=== PATIENT | male | born 1960 | race Caucasian/White ===

== ENCOUNTER 2018-09-27 16:00 | Emergency (ER) | payer OTHER ==
[~2018-09-27] VITALS: Ht 172.7 cm; Wt 72.6 kg
[~2018-09-27 16:00] MED LIST: Bactrim Ds Tab1 EACH PO; CELE200 PO; CLIN300 PO; Cyclobenzaprine5 MG PO; DOCU SOFT PO; HYDACE10B PO; IBUP800 PO; MULTIVITAMIN PO; Norco 5-325 Ta1 EACH PO; SULTRIDS PO; VIT E PO
[2018-09-27] MEDS ORDERED: PERIDEX15 ML MM (16:31)
[2018-09-27] MEDS ORDERED: Amoxicillin500 M1 PO (16:31)
== END 2018-09-27 16:49 | disposition home or self-care (01) ==
LOC: ER 16:00
DX: K08.89 Other specified disorders of teeth and supporting structures (principal); F17.200 Nicotine dependence, unspecified, uncomplicated
CPT/HCPCS: 99282

== ENCOUNTER 2019-12-10 19:52 | Inpatient (IN) | payer OTHER ==
[~2019-12-10] VITALS: Ht 172.7 cm; Wt 68.6 kg
[~2019-12-10 19:52] MED LIST changes: +Amoxicillin500 M1 PO; +PERIDEX15 ML MM
[2019-12-10] MEDS ORDERED: Ciloxan5 ML OP (19:58)
[2019-12-10 20:37] LABS: BASOPHILS ABSOLUTE AUTO 0.04 K/mm3 (0.00-0.23); BASOPHILS PERCENT AUTO 1 % (0-2); EOSINOPHILS PERCENT AUTO 1 % (0-6); Hemoglobin 14.2 g/dL (13.5-17.5); IMMATURE GRAN ABSOLUTE AUTO 0.02 K/mm3 (0.00-0.10); IMMATURE GRAN PERCENT AUTO 0 % (0-1); LYMPHOCYTES ABSOLUTE AUTO 2.05 K/mm3 (0.84-5.20); LYMPHOCYTES PERCENT AUTO 28 % (21-46); MONOCYTES ABSOLUTE AUTO 0.51 K/mm3 (0.16-1.47); MONOCYTES PERCENT AUTO 7 % (4-13); Mean Corpuscular HGB 31.3 pg (26.0-34.0); Mean Corpuscular Volume 95 fL (80-100); NEUTROPHILS ABSOLUTE AUTO 4.57 K/mm3 (1.96-9.15); NEUTROPHILS PERCENT AUTO 63 % (41-73); Platelet Count 343 K/mm3 (150-400); RDW Coefficient Variation 12.8 % (11.7-14.2); RDW Standard Deviation 44.7 fL (35.1-46.3); Red Blood Cell Count 4.54 M/mm3 (4.30-5.90); White Blood Cell Count 7.29 K/mm3 (4.00-11.30)
[2019-12-10 21:05] LABS: Alanine Aminotransfer (ALT/SGP 31 U/L (12-78); Albumin, Blood 3.7 g/dL (3.4-5.0); Alk Phos 115 U/L (50-136); Anion Gap 4 mmol/L (6-16); Aspartate Aminotrans (AST/SGOT 22 U/L (12-37); Bilirubin, Total 0.2 mg/dL (0.1-1.0); Blood Urea Nitrogen 19 mg/dL (8-24); Bun/Creatinine Ratio 18.3 (12.0-20.0); CO2, Blood 30 mmol/L (21-32); Calcium, Blood 8.8 mg/dL (8.5-10.1); Chloride, Blood 108 mmol/L (98-108); Creatinine, Blood 1.04 mg/dL (0.60-1.20); Globulin, Blood 3.8 g/dL (2.2-4.0); Glomerular Filtration Rate >60 (60-); Glucose, Blood 67 mg/dL (70-99); Sodium, Blood 142 mmol/L (136-145); Total Protein, Blood 7.5 g/dL (6.4-8.2)
[2019-12-10 21:15] LABS: Troponin I 0.693 ng/mL (0.000-0.040)
--- NOTE | 2019-12-11 01:05 | NUR ---
INITIAL ASSESSMENT PATIENT ARRIVED TO UNIT AT 0030. PATIENT ALERT AND ORIENTED X 4, AFEBRILE. PATIENT DENIES PAIN OR CHEST PRESSURE. PATIENT SATTING 90% AND GREATER ON RA. LUNGS CLEAR THROUGHOUT. PATIENT DENIES COUGH OR SOB. PATIENT IN SR, HR IN THE 60S. SBP 80S TO 90S. GI WNL. PATIENT NPO. WNL; URINAL AT BEDSIDE. SKIN WNL. PATIENT REPOSITIONING SELF IN BED. HEPARIN INFUSING AT 13 UNITS/ KG/ HOUR. PATIENT ORIENTED TO UNIT, ROOM AND CALL LIGHT. BED LOW, CALL LIGHT IN REACH. WILL CONTINUE TO MONITOR PATIENT FREQUENTLY THROUGHOUT SHIFT.
--- NOTE | 2019-12-11 01:23 | NUR ---
BLOOD SUGAR RECHECKED. BLOOD SUGAR OF 111.
--- NOTE | 2019-12-11 04:30 | NUR ---
PATIENT RESTING QUIETLY IN BED. PATIENT AFEBRILE. PATIENT GIVEN PRN TYLENOL FOR COMPLAINT OF HEADACHE. PATIENT DENIES CHEST PAIN OR PRESSURE. PATIENT IN SB TO SR, HR 50S TO 60S. SBP 80S TO 90S. NO OTHER ACUTE CHANGES TO NOTE ON AT THIS TIME. WILL CONTINUE TO MONITOR.
[2019-12-11 04:33] LABS: BASOPHILS ABSOLUTE AUTO 0.06 K/mm3 (0.00-0.23); BASOPHILS PERCENT AUTO 1 % (0-2); EOSINOPHILS ABSOLUTE AUTO 0.21 K/mm3 (0.00-0.68); EOSINOPHILS PERCENT AUTO 3 % (0-6); Hematocrit 37.3 % (37.0-53.0); Hemoglobin 12.3 g/dL (13.5-17.5); IMMATURE GRAN ABSOLUTE AUTO 0.01 K/mm3 (0.00-0.10); IMMATURE GRAN PERCENT AUTO 0 % (0-1); LYMPHOCYTES ABSOLUTE AUTO 2.99 K/mm3 (0.84-5.20); LYMPHOCYTES PERCENT AUTO 45 % (21-46); MONOCYTES ABSOLUTE AUTO 0.48 K/mm3 (0.16-1.47); MONOCYTES PERCENT AUTO 7 % (4-13); Mean Corpuscular HGB 31.4 pg (26.0-34.0); Mean Corpuscular Volume 95 fL (80-100); Mean Platelet Volume 9.8 fL (9.1-12.4); NEUTROPHILS PERCENT AUTO 44 % (41-73); Platelet Count 296 K/mm3 (150-400); RDW Coefficient Variation 12.9 % (11.7-14.2); Red Blood Cell Count 3.92 M/mm3 (4.30-5.90); White Blood Cell Count 6.65 K/mm3 (4.00-11.30)
[2019-12-11 04:50] LABS: Anion Gap 5 mmol/L (6-16); Blood Urea Nitrogen 18 mg/dL (8-24); Bun/Creatinine Ratio 21.6 (12.0-20.0); CO2, Blood 26 mmol/L (21-32); Calcium, Blood 8.2 mg/dL (8.5-10.1); Chloride, Blood 107 mmol/L (98-108); Creatinine, Blood 0.83 mg/dL (0.60-1.20); Glomerular Filtration Rate >60 (60-); Glucose, Blood 97 mg/dL (70-99); Potassium, Blood 3.9 mmol/L (3.5-5.5); Sodium, Blood 138 mmol/L (136-145)
--- NOTE | 2019-12-11 05:56 | NUR ---
SHIFT SUMMARY PATIENT SLEPT ON AND OFF SINCE ARRIVING FROM ER AT 0030. PATIENT HAS REMAINED ALERT AND ORIENTED X 4, AFEBRILE. PATIENT GIVEN PRN TYLENOL OT FOR COMPLAINT OF HEADACHE; PATIENT REPORTED RELIEF. NO COMPLAINTS OF CHEST PAIN OR PRESSURE DURING SHIFT. PATIENT REMAINED SATTING 90% AND GREATER ON RA. LUNGS REMAINED CLEAR T/O. PATIENT REMAINED IN SB TO SR, HR 50S TO 60S. SBP 80S TO 90S. NO BM THIS SHIFT. PATIENT HAS REMAINED NPO. URINAL AT BEDSIDE. PATIENT HAS NOT VOIDED SINCE ARRIVING AFTER MIDNIGHT. PATIENT STATES IT IS NORMAL FOR HIM TO GO THIS LONG AT NIGHT WITHOUT VOIDING. BLOOD SUGARS LOW IN ER AT 67 AND GIVEN JUICE. BLOOD SUGAR 111 AFTER ARRIVING AND 97 ON AM LABS. HEPARIN REMAINS INFUSING AT 13 UNITS/ KG/ HOUR; PHARMACY MANAGING. BED LOW, CALL LIGHT IN REACH. PATIENT APPEARS COMFORTABLE AND HAS NO COMPLAINTS AT THIS TIME. WILL CONTINUE TO MONITOR UNTIL REPORT GIVEN TO ONCOMING DAY SHIFT NURSE SHORTLY.
--- NOTE | 2019-12-11 08:17 | NUR ---
ASSUMED CARE RECEIVED REPORT FROM VELVET TANNER. PT IS SLEEPING IN BED. HEPARIN IS INFUSING AT 13 UNITS/KG/HR, 75KG DOSING WEIGHT, AND AT 19.5ML/HR. VERIFIED WITH FLORES. HR IN THE 50-60', BP HAS BEEN LOW BUT MAP > 65. CURRENTLY DENIES CP, SOB, AND NAUSEA. BED LOW AND LOCKED. CALL LIGHT WITHIN REACH. HE IS ON ROOM AIR SAT'ING 99%.
[2019-12-11 09:19] LABS: CHOL/HDL RATIO 5.4; Cholesterol 212 mg/dL (50-200); HDL Cholesterol 39 mg/dL (>39); LDL/HDL RATIO 3.7; Low Density Lipoprotein Chol 145 mg/dL (0-110); Triglycerides 140 mg/dL (30-160); Very Low Density Lipoprot Chol 28 mg/dL (6-32)
--- NOTE | 2019-12-11 10:50 | NUR ---
Echocardiogram completed by Luisana Delaney RDCS.
[2019-12-11 10:54] LABS: U Amphetamine Screen DETECTED
[2019-12-11 10:55] LABS: U Barbituate Screen Not Detected; U Benzodiazapine Screen Not Detected; U Buprenorphine Screen Not Detected; U Cannabinoids Screen Not Detected; U Cocaine Screen Not Detected; U Methadone Screen Not Detected; U Methamphetamine Screen DETECTED; U Opiates Screen Not Detected; U Oxycodone Screen Not Detected; U Phencyclidine Screen Not Detected; U Propoxyphene Screen Not Detected
--- NOTE | 2019-12-11 16:02 | NUR ---
UPDATE: POST [facility] [employer] PT BACK FROM [facility] AROUND 1540. HE WAS ACCESSED VIA RIGHT RADIAL SITE, WHICH CURRENTLY HAS A TR BAND INFLATED WITH A REPORTED 11cc OF AIR. SITE LOOKS CLEAN, DRY AND INTACT. NO BLEEDING/OOZING, WITH NO SIGN OF A HEMATOMA FORMATION. PT DENIES NUMBNESS/TINGLING AND PAIN IN RIGHT HAND AND HAS CAP REFIL < 3s. HE DENIES CP. HE IS IN SINUS BRADYCARDIA, RATE HIGH 40's -- LOW 50's. BP STABLE: 95/66, 74. SATS HIGH 90'S, SPO2 PROBE IS ON RIGHT HAND INDEX FINGER SHOWING GREAT, CONSISTENT PLETH. HE IS ON ROOM AIR. BED LOW AND LOCKED. CALL LIGHT WITHIN REACH.
--- NOTE | 2019-12-11 17:11 | NUR ---
Initial spiritual care note: Per admit trigger, I met with Mr. Freeman to offer information/education regarding advanced care planning. He would like his dtr to be MPOA. I gently explained advanced directive to him, and he would like to have his dtr read this over. No concerns presented. He feels hopeful for recovery. Prayer provided. I will remain available.
--- NOTE | 2019-12-11 19:30 | NUR ---
ASSUMED CARE AFTER BEDSIDE REPORT. PT IS A/O PLEASANT & COOPERATIVE. R RADIAL ACCESS SITE WITHOUT BLEEDING OR HEMATOMA, CONT W ARMBOARD IN PLACE & PT VERBALIZES UNDERSTANDING OF CARE. WILL CLEANSE & PLACE DRSG. PT ON RA, MONITOR SHOWS SB W RATE 50'S.
--- NOTE | 2019-12-11 19:37 | NUR ---
SHIFT SUMMARY RIGHT RADIAL SITE REMAINS WNL/CDI, WITH NO SIGNS OF HEMATOMA FORMATION. PT DENIES CP/SOB/NAUSEA, AND DOESN'T APPEAR DIAPHORETIC. TR BAND REMAINS IN PLACE, DEFLATION BEGAN AND NOC NURSE WILL FINISH DEFLATION. PT REMAINS IN SINUS BRADYCARDIA, WITH STABLE BP, GREAT O2 SATS, AND AFEBRILE. ADEQUATE URINE OUTPUT FOLLOWING CATH PROCEDURE. PT FINISHING UP HIS 500ML NS BOLUS (200ML/HR). SISTER UPDATED ON POC AND CATH PROCEDURE. HE WILL NEED TO FOLLOW UP WITH SANCHEZ IN THE OUTPATIENT SETTING FOR AN ADDITIONAL PROCEDURE. SANCHEZ WILL EDUCATE HIM TOMORROW WHEN SHE COMES IN FOR ROUNDS. PT HAD DINNER AND ATE 100% HE IS FEELING GOOD. BED LOW AND LOCKED. CALL LIGHT WITHIN REACH.
--- NOTE | 2019-12-11 21:30 | NUR ---
R RADIAL SITE CLEANSED & DRESSED W CLEAR OCCLUSIVE DRSG, ARM BOARD REPLACED. PT AGAIN EDUCATED RE CARE/POSITIONING. SITE IS SOFT & NO BLEEDING.
--- NOTE | 2019-12-12 03:41 | NUR ---
AWAKENED FOR LABS & VS, PT HAS BEEN SLEEPING WELL & DENIES ANY DISCOMFORT. CONT SB W RATE 50'S, VSS. R RADIAL SITE CONT W ARMBOARD IN PLACE, SITE WO BLEEDING OR HEMATOMA. VOIDS CL YELLOW PER URINAL. CALL LIGHT IN REACH.
[2019-12-12 03:47] LABS: BASOPHILS ABSOLUTE AUTO 0.05 K/mm3 (0.00-0.23); BASOPHILS PERCENT AUTO 1 % (0-2); EOSINOPHILS PERCENT AUTO 3 % (0-6); Hematocrit 41.4 % (37.0-53.0); Hemoglobin 13.8 g/dL (13.5-17.5); IMMATURE GRAN ABSOLUTE AUTO 0.03 K/mm3 (0.00-0.10); IMMATURE GRAN PERCENT AUTO 0 % (0-1); LYMPHOCYTES PERCENT AUTO 26 % (21-46); MONOCYTES ABSOLUTE AUTO 0.56 K/mm3 (0.16-1.47); MONOCYTES PERCENT AUTO 7 % (4-13); Mean Corpuscular HGB 31.4 pg (26.0-34.0); Mean Corpuscular HGB Conc 33.3 g/dL (31.5-36.5); Mean Corpuscular Volume 94 fL (80-100); NEUTROPHILS ABSOLUTE AUTO 5.03 K/mm3 (1.96-9.15); NEUTROPHILS PERCENT AUTO 63 % (41-73); Platelet Count 292 K/mm3 (150-400); RDW Coefficient Variation 12.9 % (11.7-14.2); RDW Standard Deviation 44.9 fL (35.1-46.3); Red Blood Cell Count 4.39 M/mm3 (4.30-5.90); White Blood Cell Count 7.97 K/mm3 (4.00-11.30)
[2019-12-12 04:01] LABS: Anion Gap 3 mmol/L (6-16); Blood Urea Nitrogen 15 mg/dL (8-24); Bun/Creatinine Ratio 16.7 (12.0-20.0); CO2, Blood 29 mmol/L (21-32); Calcium, Blood 8.7 mg/dL (8.5-10.1); Chloride, Blood 107 mmol/L (98-108); Glomerular Filtration Rate >60 (60-); Glucose, Blood 84 mg/dL (70-99); Potassium, Blood 4.4 mmol/L (3.5-5.5); Sodium, Blood 139 mmol/L (136-145)
--- NOTE | 2019-12-12 11:27 | NUR ---
PT SLEEPING THIS AT 0700, AROUSES TO VOICE, DENIES ALL COMPLAINTS. ACCESS SITE TO RIGHT RADIAL WITH OPSITE AND WRIST IMMOBILIZER. NAOMI PEARSON. SITE WNL; NO BLEEDING, HEMATOMA, SWELLING. DR BRADFORD AT BEDSIDE THIS AM; PLAN TO DC PT HOME TODAY. PT UP TO CHAIR FOR BREAKFAST; AMBULATES IN ROOM W/O ISSUES. VSS
[2019-12-12] MEDS ORDERED: Plavix75 MG PO (13:09)
[2019-12-12] MEDS ORDERED: Aspirin EC81 MG PO (13:09)
[2019-12-12] MEDS ORDERED: ATOR40TA PO (13:09)
--- NOTE | 2019-12-12 13:20 | NUR ---
PT AMBULATED IN HALLS; TOLERATED WELL. DENIED ALL COMPLAINTS. BP/HEARTRATE AND RYTHYM STABLE POST AMBULATION. DR APARICIO NOTIFIED. DC ORDERS TO SEND PT HOME GIVEN. FOLLOW UP APPOINTMENT MADE TO SEE DR BRADFORD, AND INFORMATION GIVEN TO PT FOR FOLLOW UP WITH NEW PCP. RX FAXED INTO [facility] PER PT REQUEST. PRINTED AND WRITTEN INFORMATION GIVEN TO PT WITH CLEAR UNDERSTANDING. PT DC'D HOME IN STABLE CONDITION AT 1319.
== END 2019-12-12 13:20 | disposition home or self-care (01) | DRG 247 ==
LOC: ER 19:52 → ERHOLD 21:52 → ICUE 21:52
PROVIDERS: Internal Medicine Cardiovascular Disease; Nurse Practitioner Acute Care; Physician Assistant; ADMIT Internal Medicine
PROC: 027034Z Dilation of Coronary Artery, One Artery with Drug-eluting Intraluminal Device, Percutaneous Approach (ICD-10-PCS; principal; 2019-12-11)
PROC: B2111ZZ Fluoroscopy of Multiple Coronary Arteries using Low Osmolar Contrast (ICD-10-PCS; 2019-12-11)
DX: I21.4 Non-ST elevation (NSTEMI) myocardial infarction (principal); F17.210 Nicotine dependence, cigarettes, uncomplicated; E78.5 Hyperlipidemia, unspecified; S05.00XD Injury of conjunctiva and corneal abrasion without foreign body, unspecified eye, subsequent encounter; I95.9 Hypotension, unspecified; R00.1 Bradycardia, unspecified; I25.5 Ischemic cardiomyopathy; Z79.82 Long term (current) use of aspirin; Z79.02 Long term (current) use of antithrombotics/antiplatelets; Y92.9 Unspecified place or not applicable
CPT/HCPCS: 36415; 36416; 71045; 76937; 80048; 80053; 80061; 82947; 84484; 85025; 85347; 85730; 92920; 93005; 93010; 93306; 93454; 99152; 99153; 99285-25; A9270; A9270-GY; C1725; C1753; C1769; C1874; C1887; C1894; C9600; G0480; J1644; J2250; J3010; J7030; J7040; Q9967

== ENCOUNTER 2021-04-12 08:33 | Emergency (ER) | payer OTHER ==
[~2021-04-12] VITALS: Ht 172.7 cm; Wt 74.8 kg
[~2021-04-12 08:33] MED LIST changes: +ATOR40TA PO; +Aspirin EC81 MG PO; +Ciloxan5 ML OP; +Plavix75 MG PO
[2021-04-12] MEDS ORDERED: METO25ER (11:22)
[2021-04-12] MEDS ORDERED: AZIT250 PO (11:45)
[2021-04-12] MEDS ORDERED: POLYMYXIN B-TMP10 ML RIGHTEYE (11:45)
== END 2021-04-12 11:55 | disposition home or self-care (01) ==
LOC: ER 08:33
DX: S05.01XA Injury of conjunctiva and corneal abrasion without foreign body, right eye, initial encounter (principal); W55.03XA Scratched by cat, initial encounter; H10.9 Unspecified conjunctivitis; F17.200 Nicotine dependence, unspecified, uncomplicated; Z79.82 Long term (current) use of aspirin
CPT/HCPCS: 90471; 99283-25; A9270

== ENCOUNTER 2022-10-05 23:09 | Emergency (ER) | payer OTHER ==
[~2022-10-05] VITALS: Ht 165.1 cm; Wt 72.6 kg
[~2022-10-05 23:09] MED LIST changes: +AZIT250 PO; +METO25ER; +POLYMYXIN B-TMP10 ML RIGHTEYE
[2022-10-06] MEDS ORDERED: KETOROLAC TROMET5 ML TOP (02:00)
[2022-10-06] MEDS ORDERED: PRED20 PO (02:00)
== END 2022-10-06 02:07 | disposition home or self-care (01) ==
LOC: ER 23:09
DX: H10.13 Acute atopic conjunctivitis, bilateral (principal); F17.210 Nicotine dependence, cigarettes, uncomplicated; Z79.82 Long term (current) use of aspirin; Z79.899 Other long term (current) drug therapy
CPT/HCPCS: 99282; A9270

== ENCOUNTER 2023-08-21 16:15 | Emergency (ER) | payer OTHER ==
[~2023-08-21] VITALS: Ht 172.7 cm; Wt 74.8 kg
[~2023-08-21 16:15] MED LIST changes: +KETOROLAC TROMET5 ML TOP; +PRED20 PO
[2023-08-21 17:02] LABS: BASOPHILS ABSOLUTE AUTO 0.04 K/mm3 (0.00-0.23); BASOPHILS PERCENT AUTO 1 % (0-2); EOSINOPHILS ABSOLUTE AUTO 0.08 K/mm3 (0.00-0.68); EOSINOPHILS PERCENT AUTO 1 % (0-6); Hematocrit 39.9 % (37.0-53.0); Hemoglobin 13.5 g/dL (13.5-17.5); IMMATURE GRAN ABSOLUTE AUTO 0.01 K/mm3 (0.00-0.10); IMMATURE GRAN PERCENT AUTO 0 % (0-1); LYMPHOCYTES ABSOLUTE AUTO 1.75 K/mm3 (0.84-5.20); LYMPHOCYTES PERCENT AUTO 28 % (21-46); MONOCYTES ABSOLUTE AUTO 0.45 K/mm3 (0.16-1.47); MONOCYTES PERCENT AUTO 7 % (4-13); Mean Corpuscular HGB 31.9 pg (26.0-34.0); Mean Corpuscular HGB Conc 33.8 g/dL (31.5-36.5); Mean Corpuscular Volume 94 fL (80-100); Mean Platelet Volume 10.4 fL (9.1-12.4); NEUTROPHILS ABSOLUTE AUTO 3.93 K/mm3 (1.96-9.15); NEUTROPHILS PERCENT AUTO 63 % (41-73); Platelet Count 291 K/mm3 (150-400); RDW Coefficient Variation 12.5 % (11.7-14.2); Red Blood Cell Count 4.23 M/mm3 (4.30-5.90); White Blood Cell Count 6.26 K/mm3 (4.00-11.30)
[2023-08-21 17:17] LABS: Albumin, Blood 3.3 g/dL (3.4-5.0); Bilirubin, Total 0.3 mg/dL (0.1-1.0); Bun/Creatinine Ratio 16.5 (12.0-20.0); Calcium, Blood 8.6 mg/dL (8.5-10.1); Creatinine, Blood 0.91 mg/dL (0.60-1.20); Globulin, Blood 3.3 g/dL (2.2-4.0); Potassium, Blood 4.2 mmol/L (3.5-5.5); Total Protein, Blood 6.6 g/dL (6.4-8.2)
[2023-08-21 19:15] VITALS: BP 123/82
== END 2023-08-21 19:28 | disposition home or self-care (01) ==
LOC: ER 16:15
PROVIDERS: Emergency Medicine
DX: R07.9 Chest pain, unspecified (principal); I25.10 Atherosclerotic heart disease of native coronary artery without angina pectoris; I25.2 Old myocardial infarction; E78.5 Hyperlipidemia, unspecified; F17.200 Nicotine dependence, unspecified, uncomplicated; Z79.82 Long term (current) use of aspirin; Z79.899 Other long term (current) drug therapy
CPT/HCPCS: 71045; 80053; 84484; 85025; 93005; 93010; 99285-25